=== PATIENT | male | born 1935 | race Caucasian/White ===

== ENCOUNTER 2018-04-23 10:06 | Observation (INO) ==
[2018-04-23 10:45] LABS: Basophils % 0.6 %; Eosinophils # 0.2 K/mcL (0.0-0.6); Eosinophils % 2.9 %; Hematocrit 41.4 % (37.5-50.1); Hemoglobin 13.5 g/dL (12.9-16.9); Immature Granulocytes % 0.3 % (0-4); Lymphocytes # 1.3 K/mcL (0.6-4.6); Lymphocytes % 21.4 %; Mean Corpuscular HGB Conc 32.6 g/dL (31.6-35.5); Mean Corpuscular Hemoglobin 30.8 pg (28.0-33.3); Mean Corpuscular Volume 94.5 fL (83.0-100.0); Mean Platelet Volume 9.6 fL (9.4-12.4); Monocytes # 0.6 K/mcL (0.0-1.3); Monocytes % 8.9 %; Neutrophils # 4.1 K/mcL (1.6-8.9); Platelet Count 210 K/mcL (140-400); Red Blood Count 4.38 M/mcL (4.19-5.50); Red Cell Distribution Width 12.8 % (11.5-14.5); Segmented Neutrophils % 65.9 %
[2018-04-23 10:53] LABS: INR 1.2; Prothrombin Time 13.3 Seconds (9.4-12.1)
--- NOTE | 2018-04-23 10:53 | Emergency Department Note ---
Disposition Clinical Impression: Blurry vision, Balance problem Headache Qualifiers: Headache type: unspecified Headache chronicity pattern: acute headache Intractability: not intractable Qualified Code(s): R51 - Headache Disposition: Admitted As Inpatient Condition: Fair General Adult HPI - General Chief complaint: ED Neuro Symptoms/Deficit Stated complaint: Neuro Symptoms Time Seen by Provider: 04/23/18 10:25 Source: patient, family Limitations: no limitations - History of Present Illness Pain Scale: 0 - Related Data Home Medications Medication Instructions Recorded Confirmed No Known Home Drugs 04/23/18 04/23/18 Allergies Allergy/AdvReac Type Severity Reaction Status Date / Time No Known Allergies Allergy Verified 04/23/18 12:27 Past Medical History - Past Medical History Medical history: Reports: no medical history Psychiatric history: Reports: no psych history - Social History Smoking Status: Never smoker Smokeless Tobacco Status: No Alcohol use: Reports: none Drug use: Reports: none Physical Exam - General Limitations: no limitations General appearance: alert, in no apparent distress Course Vital Signs Temperature 97.7 F 04/23/18 10:08 Pulse Rate 60 04/23/18 10:08 Respiratory Rate 15 04/23/18 10:08 Blood Pressure 109/65 04/23/18 10:08 O2 Sat by Pulse Oximetry 97 04/23/18 10:08 Temperature 97.7 F 04/23/18 10:21 Pulse Rate 53 04/23/18 14:56 Respiratory Rate 18 04/23/18 14:56 Blood Pressure 140/96 04/23/18 14:56 O2 Sat by Pulse Oximetry 97 04/23/18 14:56 Oxygen Delivery Oxygen Delivery Room Air Medical Decision Making - Lab Data Result diagrams: 04/23/18 10:20 04/23/18 10:20 Lab Results 04/23/18 04/23/18 04/23/18 Range/Units 10:11 10:20 10:20 WBC 6.3 (4.3-11.1) K/mcL RBC 4.38 (4.19-5.50) M/mcL Hgb 13.5 (12.9-16.9) g/dL Hct 41.4 (37.5-50.1) % MCV 94.5 (83.0-100.0) fL MCH 30.8 (28.0-33.3) pg MCHC 32.6 (31.6-35.5) g/dL RDW 12.8 (11.5-14.5) % Plt Count 210 (140-400) K/mcL MPV 9.6 (9.4-12.4) fL Immature Gran % 0.3 (0-4) % Seg Neutrophils % 65.9 % Lymphocytes % 21.4 % Monocytes % 8.9 % Eosinophils % 2.9 % Basophils % 0.6 % Neutrophils # 4.1 (1.6-8.9) K/mcL Lymphocytes # 1.3 (0.6-4.6) K/mcL Monocytes # 0.6 (0.0-1.3) K/mcL Eosinophils # 0.2 (0.0-0.6) K/mcL Basophils # 0.0 (0.0-0.2) K/mcL ESR (0-10) mm/hr PT 13.3 H (9.4-12.1) Seconds INR 1.2 APTT 35.2 (26.0-36.0) Seconds Sodium (136-145) mEq/L Potassium (3.5-5.1) mEq/L Chloride (98-107) mEq/L Carbon Dioxide (23-29) mEq/L BUN (8-23) mg/dL Creatinine (0.70-1.30) mg/dL Est GFR ( Amer) (> 60) Est GFR (Non-Af Amer) (> 60) BUN/Creatinine Ratio (6-26) Glucose (70-105) mg/dL POC Glucose 105 H (70-99) mg/dL Calculated Osmolality (280-300) Calcium (8.6-10.3) mg/dL Troponin I (< 0.04) ng/mL C-Reactive Protein (Less than 10) mg/L 04/23/18 04/23/18 Range/Units 10:20 10:20 WBC (4.3-11.1) K/mcL RBC (4.19-5.50) M/mcL Hgb (12.9-16.9) g/dL Hct (37.5-50.1) % MCV (83.0-100.0) fL MCH (28.0-33.3) pg MCHC (31.6-35.5) g/dL RDW (11.5-14.5) % Plt Count (140-400) K/mcL MPV (9.4-12.4) fL Immature Gran % (0-4) % Seg Neutrophils % % Lymphocytes % % Monocytes % % Eosinophils % % Basophils % % Neutrophils # (1.6-8.9) K/mcL Lymphocytes # (0.6-4.6) K/mcL Monocytes # (0.0-1.3) K/mcL Eosinophils # (0.0-0.6) K/mcL Basophils # (0.0-0.2) K/mcL ESR 29 H (0-10) mm/hr PT (9.4-12.1) Seconds INR APTT (26.0-36.0) Seconds Sodium 139 (136-145) mEq/L Potassium 4.3 (3.5-5.1) mEq/L Chloride 105 (98-107) mEq/L Carbon Dioxide 28 (23-29) mEq/L BUN 23 (8-23) mg/dL Creatinine 0.99 (0.70-1.30) mg/dL Est GFR ( Amer) > 60 (> 60) Est GFR (Non-Af Amer) > 60 (> 60) BUN/Creatinine Ratio 23 (6-26) Glucose 98 (70-105) mg/dL POC Glucose (70-99) mg/dL Calculated Osmolality 292 (280-300) Calcium 9.0 (8.6-10.3) mg/dL Troponin I < 0.03 (< 0.04) ng/mL C-Reactive Protein < 5 (Less than 10) mg/L Attestation Statement - Attestation Attestation: I examined this patient and my medical decision-making was reviewed with the MARKET RISK ANALYST/PA/Advanced Practice Nurse/Resident Physician. I agree with the documented findings, disposition and treatment plan as described except to the extent set forth below. I did see the patient and spoke with him and examined him. The concern is his sense of imbalance and the concern for cerebellar infarction. Head CT is done to look for CVA and the patient did have some frontal pain and visual changes earlier. His symptoms started about 3:00 in the morning and did wake him from sleep. He denies any localized numbness or weakness of the extremities, slurred speech, facial droop or confusion and this is confirmed by his and patient will be admitted. Test results pending. He has not had dizziness / imbalance in the past. 1052 I did review the EKG showing normal sinus rhythm with rate of 64 without acute ischemic change 1215
[2018-04-23 10:56] LABS: Activated Partial Thrombo Time 35.2 Seconds (26.0-36.0)
[2018-04-23 11:13] LABS: BUN/Creatinine Ratio 23 (6-26); Blood Urea Nitrogen 23 mg/dL (8-23); Carbon Dioxide 28 mEq/L (23-29); Chloride 105 mEq/L (98-107); Glucose 98 mg/dL (70-105); Osmolality,Calculated 292 (280-300); Potassium 4.3 mEq/L (3.5-5.1); Sodium 139 mEq/L (136-145); Troponin I < 0.03 ng/mL (< 0.04); eGFR For African Americans > 60 (> 60); eGFR For Non-African Americans > 60 (> 60)
[2018-04-23] MEDS ORDERED: Aspirin 81 MG TAB.CHEW PO STA (12:17)
--- NOTE | 2018-04-23 12:22 | Emergency Department Note ---
Disposition Clinical Impression: Blurry vision, Balance problem Headache Qualifiers: Headache type: unspecified Headache chronicity pattern: acute headache Intractability: not intractable Qualified Code(s): R51 - Headache Disposition: Admitted As Inpatient Condition: Fair Referrals: NONE,PCP [Primary Care Provider] - Forms: ED Satisfaction Letter Time of Disposition: 12:24 Neuro HPI - General Chief Complaint: ED Neuro Symptoms/Deficit Stated Complaint: Neuro Symptoms Time Seen by Provider: 04/23/18 10:25 Source: patient, family Limitations: no limitations Nursing Notes Reviewed: Yes Vital Signs Reviewed: Yes - History of Present Illness HPI Narrative: Patient is an 82-year-old male who presents to [facility] ED with a chief complaint of visual blurriness, headache, difficulty with balance since 2:30 AM. States he woke up with the symptoms. Denies any nausea, vomiting, fever or chills. No chest pain, difficulty breathing, abdominal pain , problems with urination or bowel movements. No pertinent medical history. Patient only takes vitamins. No other medications. Onset of Symptoms Date: 04/23/18 Onset of Symptoms Time: 02:30 Symptom Onset Unknown: Yes History of same: No Severity: moderate Symptoms Improving: No Improves with: none Worsens with: none Context: present upon awakening On Anticoagulants: No Associated symptoms: Reports: headaches. Denies: chest pain, cough, fever/ chills, nausea/vomiting, shortness of breath, weakness Treatments Prior to Arrival: none - Related Data Home Medications: Home Medications Medication Instructions Recorded Confirmed No Known Home Drugs 04/23/18 04/23/18 Allergies/Adverse Reactions: Allergies Allergy/AdvReac Type Severity Reaction Status Date / Time No Known Allergies Allergy Verified 04/23/18 12:27 All systems ED: reviewed and negative except as stated. Past Medical History - Past Medical History Attestation: Yes The following information was validated with the patient. Source: patient Medical history: Reports: no medical history Psychiatric history: Reports: no psych history - Social History Smoking Status: Never smoker Smokeless Tobacco Status: No Alcohol use: Reports: none Drug use: Reports: none Physical Exam - General Limitations: no limitations General appearance: alert, in no apparent distress - Head Head exam: atraumatic, normocephalic, normal inspection - Eye Eye exam: Present: normal appearance, PERRL, EOMI - ENT ENT exam: normal exam, normal oropharynx, mucous membranes moist - Neck Neck exam: Present: normal inspection, full ROM, trachea midline - Chest Chest inspection: Present: normal inspection, symmetric chest wall rise - Respiratory Respiratory exam: Present: normal lung sounds bilaterally - Cardiovascular Cardiovascular exam: Present: regular rate, normal rhythm, normal heart sounds - Abdominal Exam Abdominal exam: Present: soft, Non-Tender, normal bowel sounds - Extremities Exam Extremities exam: Present: normal inspection, full ROM. Absent: tenderness, pedal edema - Back Exam Back exam: Present: normal inspection, full ROM. Absent: tenderness - Neurological Exam Neurological exam: Present: alert, oriented X3, CN II-XII intact. Absent: motor sensory deficit - Expanded Neurological Exam Speech: Present: fluid speech Cranial nerves: EOM function (II, III, IV, ): Normal, facial sensation (V): Normal, facial palsy (VII): Normal, spinal accessory function (XI): Normal, tongue deviation (XII): Normal Cerebellar function: finger to nose: Normal, heel to stafford: Normal Cerebellar function: normal gait Motor strength - LUE: 5/5 Motor strength - RUE: 5/5 Motor strength - LLE: 5/5 Motor strength - RLE: 5/5 Upper motor neuron exam: sahara neglect: Absent bilaterally, pronator drift: Absent bilaterally, sensory extinction: Absent bilaterally Sensory exam upper extremity: light touch: Normal Sensory exam lower extremity: light touch: Normal Coma Scale Eye Opening: Spontaneous Coma Scale Motor Response: Obeys Commands Coma Scale Verbal Response: Oriented Coma Scale Total: 15 - Psychiatric Psychiatric exam: Present: normal affect, normal mood - Skin Skin exam: Present: warm, dry, intact, normal color Course Course Narrative: Patient seen and examined. The pain in the frontal region of the head as well as blurry vision and difficulty with balance today. Unknown last known well. Patient woke up with symptoms at 2:30 AM. We will order a CT of the head, labwork. Stroke alert was not activated since patient's last known well is unknown. Patient has an NIH score of 0. - Reevaluation(s) Reevaluation #1: Labwork, CT imaging unremarkable. Since patient has issues with his balance, concern for possible cerebellar etiology. We will admit for CVA workup. I discussed with the hospitalist who has accepted patient for admission. Aspirin ordered. Time: 12:21 Vital Signs Temperature 97.7 F 04/23/18 10:08 Pulse Rate 60 04/23/18 10:08 Respiratory Rate 15 04/23/18 10:08 Blood Pressure 109/65 04/23/18 10:08 O2 Sat by Pulse Oximetry 97 04/23/18 10:08 Temperature 97.7 F 04/23/18 10:21 Pulse Rate 60 04/23/18 11:59 Respiratory Rate 18 04/23/18 11:59 Blood Pressure 109/69 04/23/18 11:59 O2 Sat by Pulse Oximetry 97 04/23/18 11:59 Oxygen Delivery Oxygen Delivery Room Air Neuro Symptoms/Deficit - Medical Records Medical records reviewed: Yes I reviewed the patient's medical records. - Lab Data Lab results reviewed: Yes I reviewed the patient's lab results. Result diagrams: 04/23/18 10:20 04/23/18 10:20 Lab Results 04/23/18 04/23/18 04/23/18 Range/Units 10:11 10:20 10:20 WBC 6.3 (4.3-11.1) K/mcL RBC 4.38 (4.19-5.50) M/mcL Hgb 13.5 (12.9-16.9) g/dL Hct 41.4 (37.5-50.1) % MCV 94.5 (83.0-100.0) fL MCH 30.8 (28.0-33.3) pg MCHC 32.6 (31.6-35.5) g/dL RDW 12.8 (11.5-14.5) % Plt Count 210 (140-400) K/mcL MPV 9.6 (9.4-12.4) fL Immature Gran % 0.3 (0-4) % Seg Neutrophils % 65.9 % Lymphocytes % 21.4 % Monocytes % 8.9 % Eosinophils % 2.9 % Basophils % 0.6 % Neutrophils # 4.1 (1.6-8.9) K/mcL Lymphocytes # 1.3 (0.6-4.6) K/mcL Monocytes # 0.6 (0.0-1.3) K/mcL Eosinophils # 0.2 (0.0-0.6) K/mcL Basophils # 0.0 (0.0-0.2) K/mcL PT 13.3 H (9.4-12.1) Seconds INR 1.2 APTT 35.2 (26.0-36.0) Seconds Sodium (136-145) mEq/L Potassium (3.5-5.1) mEq/L Chloride (98-107) mEq/L Carbon Dioxide (23-29) mEq/L BUN (8-23) mg/dL Creatinine (0.70-1.30) mg/dL Est GFR ( Amer) (> 60) Est GFR (Non-Af Amer) (> 60) BUN/Creatinine Ratio (6-26) Glucose (70-105) mg/dL POC Glucose 105 H (70-99) mg/dL Calculated Osmolality (280-300) Calcium (8.6-10.3) mg/dL Troponin I (< 0.04) ng/mL 04/23/18 Range/Units 10:20 WBC (4.3-11.1) K/mcL RBC (4.19-5.50) M/mcL Hgb (12.9-16.9) g/dL Hct (37.5-50.1) % MCV (83.0-100.0) fL MCH (28.0-33.3) pg MCHC (31.6-35.5) g/dL RDW (11.5-14.5) % Plt Count (140-400) K/mcL MPV (9.4-12.4) fL Immature Gran % (0-4) % Seg Neutrophils % % Lymphocytes % % Monocytes % % Eosinophils % % Basophils % % Neutrophils # (1.6-8.9) K/mcL Lymphocytes # (0.6-4.6) K/mcL Monocytes # (0.0-1.3) K/mcL Eosinophils # (0.0-0.6) K/mcL Basophils # (0.0-0.2) K/mcL PT (9.4-12.1) Seconds INR APTT (26.0-36.0) Seconds Sodium 139 (136-145) mEq/L Potassium 4.3 (3.5-5.1) mEq/L Chloride 105 (98-107) mEq/L Carbon Dioxide 28 (23-29) mEq/L BUN 23 (8-23) mg/dL Creatinine 0.99 (0.70-1.30) mg/dL Est GFR ( Amer) > 60 (> 60) Est GFR (Non-Af Amer) > 60 (> 60) BUN/Creatinine Ratio 23 (6-26) Glucose 98 (70-105) mg/dL POC Glucose (70-99) mg/dL Calculated Osmolality 292 (280-300) Calcium 9.0 (8.6-10.3) mg/dL Troponin I < 0.03 (< 0.04) ng/mL - Radiology Data Radiology results reviewed: Yes I reviewed the patient's radiology results. Head CT 04/23/18 10:34 IMPRESSION: No acute intracranial abnormality. D/ / Jitendra Sequeira MD / Jitendra Sequeira MD Interpreting Provider: Jitendra Sequeira MD - EKG Data EKG attestation: Yes I reviewed and interpreted this EKG. NIH Stroke Scale - Level of Consciousness LOC: Alert - LOC Questions LOC Questions: Answers both correctly - LOC Commands LOC Commands: Performs both correctly - Best Gaze Best Gaze: Normal - Visual Visual: No visual loss - Facial Palsy Facial Palsy: Normal - Motor Arms Motor Arm-Left: No drift for 10 seconds Motor Arm-Right: No drift for 10 seconds - Motor Legs Motor Leg-Left: No drift for 5 seconds Motor Leg-Right: No drift for 5 seconds - Limb Ataxia Limb Ataxia: Normal, No Ataxia - Sensory Sensory: Normal - Best Language Best Language: No aphasia - Dysarthria Dysarthria: Normal - Extinction and Inattention Extinction and Inattention: Normal - NIHSS Total Score NIHSS Total Score: 0 TPA Checklist - LKW: 3-4.5 hrs Add. Warnings/Precautions Patient/family understanding: The patient/family members have been counseled and understood the risk, benefit , and alternatives of treatment.
[2018-04-23 14:30] LABS: C-Reactive Protein < 5 mg/L (Less than 10)
[2018-04-23] MEDS ORDERED: Acetaminophen 650 MG RECTAL SUPP RC PRN (15:56)
--- NOTE | 2018-04-23 17:20 | Internal Med History&Physical ---
Date of Encounter: 04/23/18 Time of Encounter: 17:15 Internal Medicine - H&P: HPI Admitted From: Emergency Dept Plans for Post Hospital Care: Home History of present illness: Mr. Aaorn is a 82 year old male that denies any past medical history with exception of falling from a ladder years ago, back surgery due to the fall. Pt states about 2-2:30am his morning he woke up with a TABARES. He looked over to his clock and noted blurry vision. States it felt as though thing where going in and out of focus. States he tried getting up but lost his balance and tripped but denies falling. States he eventually went back to sleep but woke up again at 5 am and blurry vision perissted. Hence, why he asked his to bring him to the ED to get checked out. States is TABARES has eased up but still having some TABARES. In ED CBC wnl, BMP reviewed and glucose 98. PT 13.3, INR 1.2 Non-contrast head CT shows no intra-cranial abnormality. Past Med Surg Social Fam HX - Past Medical History Medical history: no medical history, arthritis (arthritis diagnosed clinically today 04/23/2018 and pt informed. States he does not have any issues at this time. ) Psychiatric history: no psych history - Past Surgical History Additional surgical history: pelvis and broken leg - Social History Smoking Status: Never smoker Smokeless Tobacco Status: No Alcohol use: none Drug use: none - Family History Mother Living Status: Hx Family Cancer: Yes (breast) Internal Medicine - H&P: Meds No Known Home Drugs 04/23/18 [History] 3 Allergy/AdvReac Type Severity Reaction Status Date / Time No Known Allergies Allergy Verified 04/23/18 12:27 All Systems PM: A 10-system review of systems was performed and is negative for pertinent findings except as documented above in the HPI. - Constitutional Vitals: Temp Pulse Resp BP Pulse Ox 97.7 F 53 18 140/96 97 04/23/18 10:21 04/23/18 14:56 04/23/18 14:56 04/23/18 14:56 04/23/18 14:56 General appearance: Present: A&O X 3, no acute distress Exam: pt wears glasses - Head Head exam: Present: atraumatic, normocephalic - Eye Eye exam: Present: PERRL, conjuntiva pink, sclera anicteric Pupils: Present: PERRL - Neck Neck exam general surgery: Present: supple, trachea midline. Absent: lymphadenopathy - Respiratory Respiratory exam: Present: CTAB. Absent: accessory muscle use, rales, rhonchi, wheezes - Cardiovascular Cardiovascular exam: Present: RRR, +S1, +S2. Absent: diastolic murmur, gallop, rubs, systolic murmur - GI/Abdominal GI/Abdominal exam: Present: normal bowel sounds, soft, no peritoneal signs. Absent: distended, tenderness - Extremities Exam Extremities exam: Present: warm, radial pulses palpable and symmetrical. Absent : calf tenderness, cyanotic, pedal edema - Neurological Exam Neurological exam: Present: CN II-XII intact, oriented X3, no focal deficits. Absent: pronater drift, facial droop, speech deficit - Skin Skin exam: Present: dry, intact Internal Med - H&P Results - Labs CBC & Chem 7: 04/23/18 10:20 04/23/18 10:20 - Assessment and plan (1) Headache Current Visit: Yes Status: Acute Assessment and plan: Tylenol prn. Resolving. Qualifiers: Headache type: unspecified Headache chronicity pattern: acute headache Intractability: not intractable Qualified Code(s): R51 - Headache (2) Blurry vision Current Visit: Yes Status: Acute Assessment and plan: Will do CVA workup. MRI/MRA/Echo/Carotid/lipid panel in am. Completely resolved. Neurology to see. (3) Balance problem Current Visit: Yes Status: Acute - Time Spent With Patient Total time spent is greater than 50% in coordination of care (as documented) at patient's floor/unit and/or counseling patient: 25 - 35 minutes
[2018-04-24 05:54] LABS: Basophils % 0.3 %; Eosinophils # 0.4 K/mcL (0.0-0.6); Eosinophils % 7.3 %; Hemoglobin 13.5 g/dL (12.9-16.9); Immature Granulocytes % 0.3 % (0-4); Lymphocytes # 1.2 K/mcL (0.6-4.6); Lymphocytes % 20.8 %; Mean Corpuscular HGB Conc 32.9 g/dL (31.6-35.5); Mean Corpuscular Hemoglobin 30.5 pg (28.0-33.3); Mean Corpuscular Volume 92.8 fL (83.0-100.0); Mean Platelet Volume 9.5 fL (9.4-12.4); Monocytes # 0.6 K/mcL (0.0-1.3); Monocytes % 10.5 %; Neutrophils # 3.6 K/mcL (1.6-8.9); Platelet Count 194 K/mcL (140-400); Red Blood Count 4.42 M/mcL (4.19-5.50); Red Cell Distribution Width 12.8 % (11.5-14.5); Segmented Neutrophils % 60.8 %
[2018-04-24 06:12] LABS: INR 1.2; Prothrombin Time 12.9 Seconds (9.4-12.1)
[2018-04-24 06:14] LABS: Troponin I < 0.03 ng/mL (< 0.04)
[2018-04-24 06:18] LABS: Alanine Aminotransferase 10 Units/L (7-52); Albumin 3.6 g/dL (3.5-5.7); Albumin/Globulin Ratio 1.2 (1.1-2.2); Alkaline Phosphatase 75 Units/L (34-104); Aspartate Amino Transferase 20 Units/L (13-39); BUN/Creatinine Ratio 23 (6-26); Bilirubin,Total 0.4 mg/dL (0.3-1.0); Blood Urea Nitrogen 21 mg/dL (8-23); Carbon Dioxide 26 mEq/L (23-29); Chloride 106 mEq/L (98-107); Chol/HDL Ratio 4.4 (0-4.9); Cholesterol 176 mg/dL (< 200); Globulin 2.9 g/dL (2.4-3.5); Glucose 93 mg/dL (70-105); HDL Cholesterol 40 mg/dL (40-59); LDL Cholesterol,Calculated 103 mg/dL (0-99); Osmolality,Calculated 287 (280-300); Potassium 4.3 mEq/L (3.5-5.1); Sodium 137 mEq/L (136-145); Total Protein 6.5 g/dL (6.4-8.9); Triglycerides 167 mg/dL (< 150); eGFR For African Americans > 60 (> 60); eGFR For Non-African Americans > 60 (> 60)
[2018-04-24] MEDS ORDERED: Aspirin Enteric Coated 81 MG Tablet PO SCH (09:00)
--- NOTE | 2018-04-24 10:08 | Discharge Summary ---
<Kofi Galarza - Last Filed: 04/24/18 11:29> Orders not resulted at time of discharge: Pending orders 04/24/18 05:25 Comprehensive Metabolic Panel AM 0400 Lipid [place] AM 0400 Thyroid Stimulating Hormone Routine Troponin I AM 0400 Date of Encounter: 04/24/18 Time of Encounter: 08:30 - Discharge Diagnosis (1) Blurry vision Priority: Primary Status: Resolved (2) Balance problem Priority: Secondary Status: Resolved (3) Headache Priority: Secondary Status: Resolved Qualifiers: Headache type: unspecified Headache chronicity pattern: acute headache Intractability: not intractable Qualified Code(s): R51 - Headache Hospital course: Mr. Aaron is a 82 year old male that denies any past medical history with exception of falling from a ladder years ago, back surgery due to the fall. Patient presented for TABARES, blurry vision, states it began about 2-2:30am, he woke up with a TABARES. He looked over to his clock and noted blurry vision. States it felt as though thing where going in and out of focus. He tried getting up but lost his balance and tripped but denies falling. States he eventually went back to sleep but woke up again at 5 am and blurry vision persisted. He asked his to bring him to the ED to get checked out. CBC wnl, BMP wnl, coags normal, TSH wnl, lipids with total 176, HDL 40 Non-contrast head CT shows no intra-cranial abnormality. MRI head, MRA brain, MRA neck (including carotids) showed No focal significant arterial narrowing in the head; Multifocal small-vessel ischemic change bilaterally without acute infarct; and No focal significant arterial narrowing in the neck. No cardiac history. Symptoms completely resolved. Patient wanting to go home. Discussed further workup with echocardiogram and the reasoning for testing with patient. Echo would not be able to be completed until this afternoon and patient does not wish to stay for echocardiogram. 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 Discussed importances of following up with a primary care physician. Patient and stated understanding and agreement. Discharge discussed with: patient, family - Time Spent with Patient Total time spent providing and/or coordinating discharge services: Greater than 30 minutes (40 mins) - Discharge Medications Prescriptions: Atorvastatin Calcium [Lipitor] 20 mg PO DAILY #30 tablet Home Medications: Aspirin Enteric Coated [Aspirin EC] 81 mg PO DAILY tablet. 04/24/18 [Rx] Atorvastatin Calcium [Lipitor] 20 mg PO DAILY #30 tablet 04/24/18 [Rx] Allergies/Adverse Reactions: 3 Allergy/AdvReac Type Severity Reaction Status Date / Time No Known Allergies Allergy Verified 04/23/18 12:27 Date of admission: 04/23/18 13:47 Primary care physician: PCP NONE Consults: 04/23/18 15:56 Consult for Pharmacy Education [CONS] Stat Reason for Consult: TIA vs CVA Time Notified: 16:00 Call Completed: No Consult to Occupational Therapy [CONS] Routine Comment: Evaluate, develop and implement POC Reason for Consult: TIA vs CVA Does patient have active BEDREST order?: No Is patient medically & hemodynamically stable?: No Patient assessed for mobility or mobilized this visit?: No Consult to Physical Therapy [CONS] Routine Comment: Evaluate, develop and implement POC Reason for Consult: TIA vs CVA Does patient have active BEDREST order?: No Is patient medically & hemodynamically stable?: No Patient assessed for mobility or mobilized this visit?: No Consult to Ginseng Farmer [CONS] Routine Reason for SW Consult: TIA vs CVA Discharging clinician: Raul Singh Anticipated date of discharge: 04/24/18 - Constitutional Vitals: Temp Pulse Resp BP Pulse Ox 97.9 F 60 15 124/82 93 04/24/18 07:53 04/24/18 07:53 04/24/18 07:53 04/24/18 07:53 04/24/18 07:53 General appearance: Present: cooperative, A&O X 3, no acute distress, answers questions appropriately - Head Head exam: Present: atraumatic, normal inspection, normocephalic - Eye Eye exam: Present: EOMI, normal appearance, conjuntiva pink, sclera anicteric - ENT ENT exam: Present: mucous membranes moist - Neck Neck exam general surgery: Present: full ROM, normal inspection, supple - Respiratory Respiratory exam: Present: CTAB. Absent: respiratory distress, rhonchi, stridor , wheezes - Cardiovascular Cardiovascular exam: Present: RRR, +S1, +S2. Absent: diastolic murmur, systolic murmur - GI/Abdominal GI/Abdominal exam: Present: soft. Absent: distended, guarding, tenderness - Extremities Exam Extremities exam: Absent: pedal edema, tenderness - Neurological Exam Neurological exam: Present: alert, oriented X3, no focal deficits. Absent: facial droop, speech deficit - Psychiatric Psychiatric exam: Present: normal affect, normal mood - Skin Skin exam: Present: intact, normal color, warm. Absent: cyanosis, erythema, rash - Patient Status Disposition: Home, Self-Care Condition: Good Functional capacity at discharge: independent ambulation Overall status at discharge: patient is back to baseline - Discharge Instructions Instructions: Atorvastatin (By mouth) Follow Up With: Nikhil Rangel [Partnered Physician] - 05/01/18 8:30 am Additional Instructions: Recommend following up with a primary care provider. Recommend continue Lipitor (cholesterol medication) and Aspirin daily. - Diet and Activity Activity: resume usual activities as tolerated Diet: advance to your usual diet - VTE Documentation of Mechanical Device: Intermittent pneumatic compression device <Raul Singh - Last Filed: 04/24/18 16:37> Date of Encounter: 04/24/18 Hospital course: Mr. Aaron is a 82 year old male - Time Spent with Patient Total time spent providing and/or coordinating discharge services: Date of admission: 04/23/18 13:47 Primary care physician: PCP NONE Consults: 04/23/18 15:56 Consult for Pharmacy Education [CONS] Stat Reason for Consult: TIA vs CVA Time Notified: 16:00 Call Completed: No Consult to Occupational Therapy [CONS] Routine Comment: Evaluate, develop and implement POC Reason for Consult: TIA vs CVA Does patient have active BEDREST order?: No Is patient medically & hemodynamically stable?: No Patient assessed for mobility or mobilized this visit?: No Consult to Physical Therapy [CONS] Routine Comment: Evaluate, develop and implement POC Reason for Consult: TIA vs CVA Does patient have active BEDREST order?: No Is patient medically & hemodynamically stable?: No Patient assessed for mobility or mobilized this visit?: No Consult to Ginseng Farmer [CONS] Routine Reason for SW Consult: TIA vs CVA - Constitutional Vitals: Temp Pulse Resp BP Pulse Ox 97.9 F 60 15 124/82 93 04/24/18 07:53 04/24/18 07:53 04/24/18 07:53 04/24/18 07:53 04/24/18 07:53 - Attending Attestation I saw and examined this patient independently, and my medical decision making was reviewed with the Resident on 2017. I agree with the documented findings, assessment and treatment plan as described in the progress note or discharge summary.
--- NOTE | 2018-04-24 17:20 | Electrocardiograph Report ---
[place] [id number] Test Date: 2018-04-23 Pat Name: Branden Aaron Department: 104 Room: [facility] Gender: M [employer]: ELIZABETH : 1935 Requested By: Yury Iyer Order Number: [id number] Reading MD: Isaac Sethi Measurements Intervals [place] Rate: 64 P: 63 MN: 225 QRS: 18 QRSD: 87 T: 1 QT: 371 QTc: 380 Interpretive Statements SINUS RHYTHM WITH FIRST DEGREE AV BLOCK WITH OCCASIONAL VENTRICULAR PREMATURE COMPLEXES Electronically Signed On 04-24-2018 17:18:29 EDT by Isaac Sethi
[2018-04-24 20:30] VITALS: BP 139/80
== END 2018-04-24 12:09 | disposition home or self-care (01) ==
LOC: EMEROO 10:06 → 2NENU 10:06
PROVIDERS: ADMIT Family Medicine; ATTEND Family Medicine